=== PATIENT | female | born 1985 | race Caucasian/White ===

== ENCOUNTER 2017-07-04 19:15 | Emergency (ER) | payer OTHER ==
[~2017-07-04] VITALS: Ht 167.6 cm; Wt 65.0 kg
[2017-07-04] MEDS ORDERED: OLANZAPINE (ODT) 5 MG TAB PO STA (19:22)
[2017-07-04 19:23] VITALS: Ht 167.6 cm; Wt 65.0 kg
[2017-07-04 19:41] LABS: BASOPHILS % 0.4 % (0.0-2.0); EOSINOPHILS # 0.1 10^3/ul (0.0-0.5); EOSINOPHILS % 0.8 % (0.0-7.0); HEMOGLOBIN 12.7 g/dl (12.0-16.0); LYMPHOCYTES # 3.1 10^3/ul (0.8-2.9); LYMPHOCYTES % 36.8 % (15.0-51.0); MEAN CORPUSCULAR HEMOGLOBIN 31.3 pg (29.0-33.0); MEAN CORPUSCULAR HGB CONC 33.4 g/dl (32.0-37.0); MEAN CORPUSCULAR VOLUME 93.6 fl (82.0-101.0); MONOCYTE # 0.7 10^3/ul (0.3-0.9); MONOCYTES % 8.3 % (0.0-11.0); NEUTROPHIL # 4.5 10^3/ul (1.6-7.5); NEUTROPHILS % 53.5 % (39.0-77.0); PLATELET COUNT 290 10^3/UL (140-415); RED BLOOD COUNT 4.06 10^6/ul (4.20-5.40); RED CELL DISTRIBUTION WIDTH 13.5 % (11.5-14.5); WHITE BLOOD COUNT 8.4 10^3/ul (4.8-10.8)
[2017-07-04 20:04] LABS: ALANINE AMINOTRANSFERASE 58 IU/L (13-69); ALBUMIN/GLOBULIN RATIO 1.14; ALKALINE PHOSPHATASE 61 IU/L (42-121); ANION GAP 13 (8-16); ASPARTATE AMINO TRANSFERASE 48 IU/L (15-46); BILIRUBIN,INDIRECT 0.7 mg/dl (0-1.1); BILIRUBIN,TOTAL 0.7 mg/dl (0.2-1.3); BLOOD UREA NITROGEN 14 mg/dl (7-20); CALCIUM 9.8 mg/dl (8.4-10.2); CARBON DIOXIDE 30 mmol/L (21-31); CHLORIDE 108 mmol/L (97-110); CREATININE 0.66 mg/dl (0.44-1.00); GLUCOSE 88 mg/dl (70-220); POTASSIUM 3.8 mmol/L (3.5-5.1); SODIUM 147 mmol/L (135-144); TOTAL PROTEIN 7.5 g/dl (6.1-8.1)
[2017-07-04 20:06] LABS: ETHANOL < 10.0 mg/dl; SALICYLATE < 1.0 mg/dl (5.0-30.0)
[2017-07-04 22:19] LABS: ACETAMINOPHEN < 10.0 ug/ml (10.0-30.0)
--- NOTE | 2017-07-04 23:00 | ERD ---
ER Documentation Chief Complaint Chief Complaint bib ra for possible meth use, HPI Patient is a 32-year-old female who presents altered. Please note the history and physical exam is limited secondary to patient's mental status. The patient was brought in by ambulance. The patient admits to using methamphetamines. [employer] arrived on the scene and called paramedics. She denies suicidal or homicidal ideation she was found running through traffic. On review of old medical records this is the patient's first visit to the emergency department. ROS All systems reviewed and are negative except as per history of present illness. Allergies Allergies: Coded Allergies: Unknown: Unable to obtain (Unverified , 07/04/17) PMhx/Soc Medical and Surgical Hx: Unable to obtain FmHx Unable to obtain Physical Exam Vitals Vital Signs Date Time Temp Pulse Resp B/P Pulse Ox O2 Delivery O2 Flow Rate FiO2 07/04/17 19:23 98.9 82 18 141/81 100 Physical Exam Const: Agitated with pressured speech Head: Atraumatic Eyes: Normal Conjunctiva ENT: Normal External Ears, Nose and Mouth. Neck: Full range of motion..~ No meningismus. Resp: Clear to auscultation bilaterally Cardio: Regular rate and rhythm, no murmurs Abd: Soft, non tender, non distended. Normal bowel sounds Skin: No petechiae or rashes Back: No midline or flank tenderness Ext: No cyanosis, or edema Neur: Awake but appears intoxicated on methamphetamine Psych: Agitated, denies suicidal or homicidal ideation, was running through traffic Result Diagram: 07/04/17193407/04/171934 Results 24 hrs Laboratory Tests Test 07/04/17 19:35 White Blood Count 8.410^3/ul Red Blood Count 4.0610^6/ul Hemoglobin 12.7g/dl Hematocrit 38.0% Mean Corpuscular Volume 93.6fl Mean Corpuscular Hemoglobin 31.3pg Mean Corpuscular Hemoglobin Concent 33.4g/dl Red Cell Distribution Width 13.5% Platelet Count 32985^3/UL Mean Platelet Volume 10.0fl Neutrophils % 53.5% Lymphocytes % 36.8% Monocytes % 8.3% Eosinophils % 0.8% Basophils % 0.4% Nucleated Red Blood Cells % 0.0/100WBC Neutrophils # 4.510^3/ul Lymphocytes # 3.110^3/ul Monocytes # 0.710^3/ul Eosinophils # 0.110^3/ul Basophils # 0.010^3/ul Nucleated Red Blood Cells # 0.010^3/ul Sodium Level 147mmol/L Potassium Level 3.8mmol/L Chloride Level 108mmol/L Carbon Dioxide Level 30mmol/L Anion Gap 13 Blood Urea Nitrogen 14mg/dl Creatinine 0.66mg/dl Glucose Level 88mg/dl Calcium Level 9.8mg/dl Total Bilirubin 0.7mg/dl Direct Bilirubin 0.00mg/dl Indirect Bilirubin 0.7mg/dl Aspartate Amino Transf (AST/SGOT) 48IU/L Alanine Aminotransferase (ALT/SGPT) 58IU/L Alkaline Phosphatase 61IU/L Total Protein 7.5g/dl Albumin 4.0g/dl Globulin 3.50g/dl Albumin/Globulin Ratio 1.14 Serum HCG, Qualitative NEGATIVE Salicylates Level < 1.0mg/dl Acetaminophen Level < 10.0ug/ml Ethyl Alcohol Level < 10.0mg/dl Current Medications Medications (Trade) Dose Ordered Sig/Sekou Route PRN Reason Start Time Stop Time Status Last Admin Dose Admin Olanzapine (Zyprexa Zydis) 5 mg ONCE STAT PO 07/04/17 19:22 07/04/17 19:23 DC 07/04/17 19:42 Procedures/MDM Patient is a 32-year-old female presents with agitation and likely methamphetamine abuse. The patient has been medically clear. She is awaiting a psychiatric treatment at this time. She was given Zyprexa. My sense is that this is most likely methamphetamine abuse and that once she calms down off the methamphetamines may be more appropriate and could potentially be discharge at that time. However the patient will need psychiatric evaluation to determine whether she requires a 5150 hold. She will be signed out to the oncoming physician. Critical Care: Time: 35 minutes excluding all billable procedures. Treatments/Evaluations: Close monitoring and treatment of unstable vital signs, cardiorespiratory, and neurologic status, while maintaining tight balance of fluid, respiratory, and cardiac interventions. Departure Diagnosis: Primary Impression: Psychosis Psychosis type: unspecified psychosis type Qualified Code: F29 - Psychosis, unspecified psychosis type Additional Impression: Drug use Condition: KETAN Maradiaga MD Jul 04, 2017 23:00
[2017-07-05] VITALS: BP 106/79; PULSE 89; RESP 17; TEMP 98
--- NOTE | 2017-07-05 00:11 | PSY ---
Date/Time of Note Date/Time of Note DATE: 07/05/17 TIME: 00:10 Psychiatric Subjective Eval Consent Pt consented to telemedicine: Yes Subjective Evaluation Patient location: emergency Chief Complaint: bib ra for possible meth use, Medical history Problems Medical Problems: (1) Drug use Status: Acute (2) Psychosis Status: Acute Allergies: Coded Allergies: Unknown: Unable to obtain (Unverified , 07/04/17) Psychiatric Objective Eval Mental Status Examination: Laboratory Results Laboratory Tests Test 07/04/17 19:35 White Blood Count 8.410^3/ul Red Blood Count 4.0610^6/ul Hemoglobin 12.7g/dl Hematocrit 38.0% Mean Corpuscular Volume 93.6fl Mean Corpuscular Hemoglobin 31.3pg Mean Corpuscular Hemoglobin Concent 33.4g/dl Red Cell Distribution Width 13.5% Platelet Count 25598^3/UL Mean Platelet Volume 10.0fl Neutrophils % 53.5% Lymphocytes % 36.8% Monocytes % 8.3% Eosinophils % 0.8% Basophils % 0.4% Nucleated Red Blood Cells % 0.0/100WBC Neutrophils # 4.510^3/ul Lymphocytes # 3.110^3/ul Monocytes # 0.710^3/ul Eosinophils # 0.110^3/ul Basophils # 0.010^3/ul Nucleated Red Blood Cells # 0.010^3/ul Sodium Level 147mmol/L Potassium Level 3.8mmol/L Chloride Level 108mmol/L Carbon Dioxide Level 30mmol/L Anion Gap 13 Blood Urea Nitrogen 14mg/dl Creatinine 0.66mg/dl Glucose Level 88mg/dl Calcium Level 9.8mg/dl Total Bilirubin 0.7mg/dl Direct Bilirubin 0.00mg/dl Indirect Bilirubin 0.7mg/dl Aspartate Amino Transf (AST/SGOT) 48IU/L Alanine Aminotransferase (ALT/SGPT) 58IU/L Alkaline Phosphatase 61IU/L Total Protein 7.5g/dl Albumin 4.0g/dl Globulin 3.50g/dl Albumin/Globulin Ratio 1.14 Serum HCG, Qualitative NEGATIVE Salicylates Level < 1.0mg/dl Acetaminophen Level < 10.0ug/ml Ethyl Alcohol Level < 10.0mg/dl Assessment Additional comments: IDENTIFYING INFORMATION: 32 year old Female patient who is currently located at the hospital and for whom psychiatric consultation was requested. SOURCES OF INFORMATION: the nursing staff. CHIEF COMPLAINT: Unable to assess as the patient was not able to cooperate with the interview at this time. HISTORY OF PRESENT ILLNESS: The patient was interviewed via telemedicine in the presence of and under the supervision of nursing staff of the hospital. The consent to conducting this interview via telemedicine was obtained by the nursing staff at the hospital. RN Dianne reports that the patient was brought in with agitation. She was not able to cooperate with staff. She kicks and spitts at staff, and was placed on restraints. She received Zyprexa and became somnolent. Not able to participate in the interview at this time. Therefore, they will call us back for an evaluation later. According to the emergency room physician's note, the patient presented with altered mental status in the context of using methamphetamines. Is not on a 5150. PAST MEDICAL HISTORY: Unable to assess as the patient was not able to cooperate with the interview at this time. CURRENT MEDICATIONS: Unable to assess as the patient was not able to cooperate with the interview at this time. ALLERGIES TO MEDICATIONS: Unable to assess as the patient was not able to cooperate with the interview at this time. SOCIAL HISTORY: Unable to assess as the patient was not able to cooperate with the interview at this time. LABORATORY TESTS: CBC unremarkable, CMP with sodium of 147, AST 48, alcohol was not detected, UDS pending, test negative. REVIEW OF SYSTEMS: Unable to assess as the patient was not able to cooperate with the interview at this time. MENTAL STATUS EXAMINATION: Unable to assess as the patient was not able to cooperate with the interview at this time. ASSESSMENT: Unable to assess as the patient was not able to cooperate with the interview at this time. PLAN: - Medication management: Would start haloperidol 5 mg IM PRN severe agitation q4 hours. Would start diphenhydramine 50 mg IM PRN severe agitation q4 hours. Would start lorazepam 2 mg IM PRN severe agitation q4 hours - Labs: please check UDS. - Disposition: Unable to assess as the patient was not able to cooperate with the interview at this time. ALICE ANTHONY MD Jul 05, 2017 00:11
[2017-07-05] MEDS ORDERED: TRAZ100T15 PO (05:30)
[2017-07-05] MEDS ORDERED: QUET100T PO (05:30)
--- NOTE | 2017-07-05 05:32 | EN ---
Date/Time of Note Date/Time of Note DATE: 07/05/17 TIME: 05:31 ER Progress Note Observation Note: Time: Four hours Family Hx: No Hypertension Evaluation: Multiple exams showed improving symptoms and no evidence of decompensation. Evaluated by telemetry psychiatry and found to be stable for outpatient management. Discharge home with trazodone and Seroquel f per telemetry psychiatry WILL LLAMAS Jul 05, 2017 05:32
--- NOTE | 2017-07-05 05:49 | PSY ---
Date/Time of Note Date/Time of Note DATE: 07/05/17 TIME: 05:42 Psychiatric Subjective Eval Consent Pt consented to telemedicine: Yes Subjective Evaluation Patient location: emergency Chief Complaint: bib ra for possible meth use, Reason for consult: agitated History of present illness patient is a 32 yo female with PPH of bipolar do and methamphetamine abuse who was brought in by the police from a 02/07 due to being agitated. She continued to be agitated in the ER , yelling and cursing. Now when i interview the patient she is calm and cooperative. she tells me that she was at 02/07 where she supposely work and she smoked some methamphetamine and became agitated and the [employer] were called. she denies feeling suicidal or homicidal, she denies feeling depressed, anxious or paranoid, she denies hearing voices. she wants to be discharge and wants to stop using methamphetamine because she states that it makes her go crazy. Past psychiatric history past suicidal attempt no Hospitalization: yes Family History denies Medical history Problems Medical Problems: (1) Drug use Status: Acute (2) Psychosis Status: Acute Allergies: Coded Allergies: Unknown: Unable to obtain (Unverified , 07/04/17) Substance Abuse Substance abuse history: Yes (methamphetamine ) Social History Marital status: single Level of education: hs DPA/Conservatorship: No Occupation/Chcf: no Psychiatric Objective Eval Review of Systems: Review of Systems: Not Applicable Physical Examination: Physical Examination: Applicable Sleep: Insomnia Appetite: Decreased Energy: Decreased Interest: Decreased Mental Status Examination: Appearance: Disheveled Eye Contact: Fair Psychomotor Activity: Normal Behavior: Cooperative Speech: Clear AFFECT: Appropriate Mood: Appropriate/Full Though Process: Linear Thought Content: Normal Suicidal: No Homicidal: No On 72 hour hold: No Orientation: x3 Cognition: Alert Insight: Intact Judgement: Intact Attention Span: Intact Laboratory Results Laboratory Tests Test 07/04/17 19:35 White Blood Count 8.410^3/ul Red Blood Count 4.0610^6/ul Hemoglobin 12.7g/dl Hematocrit 38.0% Mean Corpuscular Volume 93.6fl Mean Corpuscular Hemoglobin 31.3pg Mean Corpuscular Hemoglobin Concent 33.4g/dl Red Cell Distribution Width 13.5% Platelet Count 75903^3/UL Mean Platelet Volume 10.0fl Neutrophils % 53.5% Lymphocytes % 36.8% Monocytes % 8.3% Eosinophils % 0.8% Basophils % 0.4% Nucleated Red Blood Cells % 0.0/100WBC Neutrophils # 4.510^3/ul Lymphocytes # 3.110^3/ul Monocytes # 0.710^3/ul Eosinophils # 0.110^3/ul Basophils # 0.010^3/ul Nucleated Red Blood Cells # 0.010^3/ul Sodium Level 147mmol/L Potassium Level 3.8mmol/L Chloride Level 108mmol/L Carbon Dioxide Level 30mmol/L Anion Gap 13 Blood Urea Nitrogen 14mg/dl Creatinine 0.66mg/dl Glucose Level 88mg/dl Calcium Level 9.8mg/dl Total Bilirubin 0.7mg/dl Direct Bilirubin 0.00mg/dl Indirect Bilirubin 0.7mg/dl Aspartate Amino Transf (AST/SGOT) 48IU/L Alanine Aminotransferase (ALT/SGPT) 58IU/L Alkaline Phosphatase 61IU/L Total Protein 7.5g/dl Albumin 4.0g/dl Globulin 3.50g/dl Albumin/Globulin Ratio 1.14 Serum HCG, Qualitative NEGATIVE Salicylates Level < 1.0mg/dl Acetaminophen Level < 10.0ug/ml Ethyl Alcohol Level < 10.0mg/dl Assessment and Plan Assessment/Diagnosis [place] I: methamphetamine intoxication bipolar do by hx [place] II: deferred [place] III: none [place] IV: poor social support [place] V: gaf 65 Recommendation/Plan Medication Management seroquel 100 mg po bid for 2 weeks trazodone 100 mg po qhd for 2 weeks Follow-up/Disposition In my opinion,for this patient, outpatient care is the least restrictive option. Based on available evidence, ~this condition CAN be safely treated at a lower level of care effective today. Patient is stable without ~clear and convincing evidence of imminent danger due to mental illness that requires acute inpatient psychiatric ~care as the least restrictive alternative. Please discharge patient with referral for follow up to a outpatient mental health clinic for psychotherapy and medication. 5150 Recommendation: TIAN Morales MD Jul 05, 2017 05:49
[2017-07-05 05:58] LABS: ADD UMIC YES; UR ASCORBIC ACID NEGATIVE (NEGATIVE); UR BILIRUBIN (Dip) NEGATIVE (NEGATIVE); UR BLOOD (Dip) NEGATIVE (NEGATIVE); UR CLARITY SLIGHTLY CLOUDY (CLEAR); UR COLOR YELLOW (YELLOW); UR GLUCOSE (Dip) NEGATIVE (NEGATIVE); UR KETONES (Dip) NEGATIVE (NEGATIVE); UR LEUKOCYTE ESTERASE (Dip) 2+ Leu/ul (NEGATIVE); UR MUCUS MODERATE /HPF (NONE SEEN); UR NITRITE (Dip) NEGATIVE (NEGATIVE); UR RBC 6 /HPF (0-5); UR SPECIFIC GRAVITY (Dip) 1.031 (1.003-1.030); UR SQUAMOUS EPITHELIAL CELL MODERATE /HPF (FEW); UR TOTAL PROTEIN (Dip) 1+ mg/dl (NEGATIVE); UR UROBILINOGEN (Dip) 1+ mg/dL (NEGATIVE)
[2017-07-05 07:01] LABS: BARBITURATES NEG (NEGATIVE); BENZODIAZEPINES NEG (NEGATIVE); CANNABINOIDS NEG (NEGATIVE); COCAINE NEG (NEGATIVE); OPIATES NEG (NEGATIVE)
== END 2017-07-05 05:52 | disposition home or self-care (01) ==
LOC: E/R 19:15
DX: F29 Unspecified psychosis not due to a substance or known physiological condition (principal); F15.10 Other stimulant abuse, uncomplicated
CPT/HCPCS: 36415; 80053; 80306; 80307; 81001; 84703; 85025; Z7502; Z7610